=== PATIENT | male | born 1930 | race Caucasian/White ===

== ENCOUNTER → 2016-09-12 | Outpatient (CLI) | payer MEDICARE, BC ==
[2016-09-12 08:37] LABS: CHLORIDE,CL 107 mmol/L (98-110); SODIUM,NA 141 mmol/L (136-146)
== END ==
LOC: MW.CHFP 07:31
PROVIDERS: ATTEND Student in an Organized Health Care Education/Training Program
DX: E11.9 Type 2 diabetes mellitus without complications (principal); I10 Essential (primary) hypertension; E11.69 Type 2 diabetes mellitus with other specified complication; E78.5 Hyperlipidemia, unspecified; N40.0 Benign prostatic hyperplasia without lower urinary tract symptoms
CPT/HCPCS: 36415; 80053; 80061; 82044; 83036; 99214

== ENCOUNTER → 2016-10-03 | Outpatient (CLI) | payer MEDICARE, BC | LOC: MW.CHPOD 08:00 | PROVIDERS: ATTEND Podiatrist Foot & Ankle Surgery | DX: E11.9 Type 2 diabetes mellitus without complications (principal); R26.9 Unspecified abnormalities of gait and mobility; M20.41 Other hammer toe(s) (acquired), right foot; M20.42 Other hammer toe(s) (acquired), left foot; B35.1 Tinea unguium; I73.9 Peripheral vascular disease, unspecified; L60.3 Nail dystrophy | CPT/HCPCS: 11721; 99204 ==

== ENCOUNTER 2017-06-14 03:17 | Observation (INO) | payer MEDICARE, BC ==
--- NOTE | 2017-06-14 03:23 | EDM.PDOC ---
ED HPI GENERAL MEDICAL PROBLEM - General Stated Complaint: AMBULANCE Time Seen by Provider: 06/14/17 03:20 - History of Present Illness INITIAL COMMENTS - FREE TEXT/NARRATIVE: HISTORY AND PHYSICAL: History of present illness: Patient's an 87-year-old white male who was in the [facility] noted by security and when confronted states he is here for his AVM appointment paramedics were called patient was noted to be confused story remains unclear on arrival here he states his son was supposed medial check his blood sugar which he does daily and and patient check blood pressure which was elevated contacted his son who said he would meet him at the hospital patient does not have his cell phone at this time is unable to give us any contact information for her son he denies chest pain shortness of breath or any other constitutional symptoms. He is oriented to person place. Review of systems: As per history of present illness and below otherwise all systems reviewed and negative. Past medical history: As per history of present illness and as reviewed below otherwise noncontributory. Surgical history: As per history of present illness and as reviewed below otherwise noncontributory. Social history: No reported history of drug or alcohol abuse. Family history: As per history of present illness and as reviewed below otherwise noncontributory. Physical exam: HEENT: Atraumatic, normocephalic, pupils reactive, negative for conjunctival pallor or scleral icterus, mucous membranes moist, throat clear, neck supple, nontender, trachea midline. Lungs: Clear to auscultation, breath sounds equal bilaterally, chest nontender. Heart: S1S2, regular, negative for clicks, rubs, or JVD. Abdomen: Soft, nondistended, nontender. Negative for masses or hepatosplenomegaly. Negative for costovertebral tenderness. Pelvis: Stable nontender. Genitourinary: Moderate/large size right inguinal hernia noted tender to palpation unreducible baseline per patient. Rectal: Deferred. Extremities: Atraumatic, negative for cords or calf pain. Neurovascular unremarkable. Neuro: Awake, alert, oriented person and place she somewhat confused to time and has generally slow mentation Diagnostics: CBC CMP troponin PT/INR chest x-ray EKG UA ammonia level CT brain Therapeutics: IV O2 monitor Impression: #1 Altered mental status #2 right inguinal hernia #3 history of hypertension #4 history of diabetes Impression: [] Definitive disposition and diagnosis as appropriate pending reevaluation and review of above. - Related Data Allergies Allergy/AdvReac Type Severity Reaction Status Date / Time No Known Allergies Allergy Verified 06/14/17 03:26 Home Meds: Home Meds Aspirin [Azalea Chewable Aspirin] 81 mg PO DAILY 07/09/14 [History] Lisinopril [Zestril] 20 mg PO DAILY 07/09/14 [History] metFORMIN HCl [Metformin HCl] 500 mg PO TIDM 07/12/14 [History] Insulin Glarg,Human.Rec.Analog [Lantus Solostar] 30 units SUBCUT BEDTIME #1 pen 07/14/14 [Rx] Finasteride [Finasteride] 1 tab PO DAILY 07/14/15 [History] Tamsulosin HCl [Tamsulosin HCl] 1 tab PO DAILY 07/14/15 [History] Past Medical History Cardiovascular History: Reports: High Cholesterol, Hypertension Endocrine/Metabolic History: Reports: Diabetes, Type II Social & Family History - Tobacco Use Smoking Status *Q: Never Smoker Second Hand Smoke Exposure: No - Alcohol Use Days Per Week of Alcohol Use: 0 - Recreational Drug Use Recreational Drug Use: No ED ROS GENERAL - Review of Systems Review Of Systems: ROS reveals no pertinent complaints other than HPI. ED EXAM, GENERAL - Physical Exam Exam: See Below (See dictation) Course - Vital Signs Last Recorded V/S: Last Vital Signs Temp 35.9 C 06/14/17 03:22 Pulse 67 06/14/17 03:22 Resp 12 06/14/17 03:22 BP 159/74 H 06/14/17 03:22 Pulse Ox 95 06/14/17 03:22 - Orders/Labs/Meds Orders: Active Orders 24 hr Category Date Time Status Cardiac Monitoring [RC] . DIRECTED Care 06/14/17 03:18 Inactive Cardiac Monitoring [RC] . DIRECTED Care 06/14/17 03:20 Active EKG Documentation Completion [RC] STAT Care 06/14/17 03:18 Active Abdomen Pelvis wo Cont [CT] Stat Exams 06/14/17 06:07 Ordered Chest 1V Frontal [CR] Stat Exams 06/14/17 03:18 Taken Head wo Cont [CT] Stat Exams 06/14/17 03:19 Taken Sodium Chloride 0.9% [Normal Saline] 1,000 ml Med 06/14/17 06:15 Ordered IV STAT Ziprasidone Mesylate [Geodon] 20 mg Med 06/14/17 06:08 Ordered Water For Injection, Sterile [Sterile Water for Injection] 1.2 ml IM ONETIME Medication Orders Sodium Chloride (Normal Saline) 1,000 mls @ 125 mls/hr IV STAT CLARICE Ziprasidone 20 mg/ Sterile (Water) 1.2 mls @ 1 mls/sec IM ONETIME ONE Stop: 06/14/17 06:09 Labs: Laboratory Tests 06/14/17 06/14/17 06/14/17 Range/Units 03:30 04:15 04:15 WBC 8.17 (4.0-11.0) K/uL RBC 5.00 (4.50-5.90) M/uL Hgb 15.4 (13.0-17.0) g/dL Hct 44.5 (38.0-50.0) % MCV 89.0 (80.0-98.0) fL MCH 30.8 (27.0-32.0) pg MCHC 34.6 (31.0-37.0) g/dL RDW Std Deviation 42.2 (28.0-62.0) fl RDW Coeff of Huong 13 (11.0-15.0) % Plt Count 192 (150-400) K/uL MPV 10.10 (7.40-12.00) fL Neut % (Auto) 61.8 (48.0-80.0) % Lymph % (Auto) 25.2 (16.0-40.0) % Simpson % (Auto) 9.3 (0.0-15.0) % Eos % (Auto) 3.5 (0.0-7.0) % Baso % (Auto) 0.2 (0.0-1.5) % Neut # (Auto) 5.0 (1.4-5.7) K/uL Lymph # (Auto) 2.1 (0.6-2.4) K/uL Simpson # (Auto) 0.8 (0.0-0.8) K/uL Eos # (Auto) 0.3 (0.0-0.7) K/uL Baso # (Auto) 0.0 (0.0-0.1) K/uL Nucleated RBC % 0.0 /100WBC Nucleated RBCs # 0 K/uL INR 1.01 (0.86-1.11) Sodium 137 (136-146) mmol/L Potassium 4.3 (3.5-5.1) mmol/L Chloride 105 (98-110) mmol/L Carbon Dioxide 24 (21-31) mmol/L BUN 12 (6.0-23.0) mg/dL Creatinine 1.0 (0.6-1.5) mg/dL Est Cr Clr Drug Dosing TNP Estimated GFR (MDRD) > 60.0 ml/min Glucose 152 H (60-110) mg/dL Calcium 8.9 (8.8-10.8) mg/dL Ammonia (14-68) UG/DL Troponin I < 0.10 (0.0-0.29) NG/ML Urine Color Urine Appearance Urine pH (5.0-8.0) Ur Specific [place] (1.001-1.035) Urine Protein (NEGATIVE) mg/dL Urine Glucose (UA) (NEGATIVE) mg/dL Urine Ketones (NEGATIVE) mg/dL Urine Occult Blood (NEGATIVE) Urine Nitrite (NEGATIVE) Urine Bilirubin (NEGATIVE) Urine Urobilinogen (<2.0) EU/dL Ur Leukocyte Esterase (NEGATIVE) Urine RBC (0-2/HPF) Urine WBC (0-5/HPF) Ur Epithelial Cells (NONE-FEW) Urine Bacteria (NEGATIVE) Urinalysis Comment 06/14/17 06/14/17 Range/Units 04:15 04:50 WBC (4.0-11.0) K/uL RBC (4.50-5.90) M/uL Hgb (13.0-17.0) g/dL Hct (38.0-50.0) % MCV (80.0-98.0) fL MCH (27.0-32.0) pg MCHC (31.0-37.0) g/dL RDW Std Deviation (28.0-62.0) fl RDW Coeff of Huong (11.0-15.0) % Plt Count (150-400) K/uL MPV (7.40-12.00) fL Neut % (Auto) (48.0-80.0) % Lymph % (Auto) (16.0-40.0) % Simpson % (Auto) (0.0-15.0) % Eos % (Auto) (0.0-7.0) % Baso % (Auto) (0.0-1.5) % Neut # (Auto) (1.4-5.7) K/uL Lymph # (Auto) (0.6-2.4) K/uL Simpson # (Auto) (0.0-0.8) K/uL Eos # (Auto) (0.0-0.7) K/uL Baso # (Auto) (0.0-0.1) K/uL Nucleated RBC % /100WBC Nucleated RBCs # K/uL INR (0.86-1.11) Sodium (136-146) mmol/L Potassium (3.5-5.1) mmol/L Chloride (98-110) mmol/L Carbon Dioxide (21-31) mmol/L BUN (6.0-23.0) mg/dL Creatinine (0.6-1.5) mg/dL Est Cr Clr Drug Dosing Estimated GFR (MDRD) ml/min Glucose (60-110) mg/dL Calcium (8.8-10.8) mg/dL Ammonia 30 (14-68) UG/DL Troponin I (0.0-0.29) NG/ML Urine Color YELLOW Urine Appearance CLEAR Urine pH 6.5 (5.0-8.0) Ur Specific [place] 1.015 (1.001-1.035) Urine Protein NEGATIVE (NEGATIVE) mg/dL Urine Glucose (UA) >=1000 (NEGATIVE) mg/dL Urine Ketones NEGATIVE (NEGATIVE) mg/dL Urine Occult Blood TRACE-LYSED (NEGATIVE) Urine Nitrite NEGATIVE (NEGATIVE) Urine Bilirubin NEGATIVE (NEGATIVE) Urine Urobilinogen 0.2 (<2.0) EU/dL Ur Leukocyte Esterase NEGATIVE (NEGATIVE) Urine RBC 0-2 (0-2/HPF) Urine WBC 0-1 (0-5/HPF) Ur Epithelial Cells RARE (NONE-FEW) Urine Bacteria RARE (NEGATIVE) Urinalysis Comment Meds: Medications Generic Name Dose Route Start Last Admin Trade Name Freq PRN Reason Stop Dose Admin Sodium Chloride 1,000 mls @ 125 mls/hr 06/14/17 06:15 Normal Saline IV STAT CLARICE Ziprasidone 20 mg/ Sterile 1.2 mls @ 1 mls/sec 06/14/17 06:08 Water IM 06/14/17 06:09 ONETIME ONE Departure - Departure Time of Disposition: 06:11 Disposition: Refer to Observation Condition: Good Clinical Impression: Altered mental status, Inguinal hernia, History of diabetes mellitus, History of hypertension - Discharge Information - My Orders Last 24 Hours: My Active Orders 06/14/17 03:18 Cardiac Monitoring [RC] . DIRECTED EKG Documentation Completion [RC] STAT Chest 1V Frontal [CR] Stat 06/14/17 03:19 Head wo Cont [CT] Stat 06/14/17 03:20 Cardiac Monitoring [RC] . DIRECTED 06/14/17 06:07 Abdomen Pelvis wo Cont [CT] Stat 06/14/17 06:08 Ziprasidone Mesylate [Geodon] 20 mg Water For Injection, Sterile [Sterile Water for Injection] 1.2 ml IM ONETIME 06/14/17 06:15 Sodium Chloride 0.9% [Normal Saline] 1,000 ml IV STAT - Assessment/Plan Last 24 Hours: My Active Orders 06/14/17 03:18 Cardiac Monitoring [RC] . DIRECTED EKG Documentation Completion [RC] STAT Chest 1V Frontal [CR] Stat 06/14/17 03:19 Head wo Cont [CT] Stat 06/14/17 03:20 Cardiac Monitoring [RC] . DIRECTED 06/14/17 06:07 Abdomen Pelvis wo Cont [CT] Stat 06/14/17 06:08 Ziprasidone Mesylate [Geodon] 20 mg Water For Injection, Sterile [Sterile Water for Injection] 1.2 ml IM ONETIME 06/14/17 06:15 Sodium Chloride 0.9% [Normal Saline] 1,000 ml IV STAT
[2017-06-14 04:38] LABS: CHLORIDE,CL 105 mmol/L (98-110); SODIUM,NA 137 mmol/L (136-146)
[2017-06-14] MEDS ORDERED: Ziprasidone Mesylate 20 MG in Water For Injection, Sterile 1.2 ML IM ONE (06:08)
[2017-06-14] MEDS ORDERED: Ziprasidone Mesylate 20 MG Vial ONE ×2 (06:12→06:26)
[2017-06-14] MEDS ORDERED: Sodium Chloride 0.9% 1,000 ML IV SCH (06:15)
[2017-06-14] MEDS ORDERED: Pneumococcal Polyvalent-23 Vaccine 0.5 ML SDV IM ONE (08:44)
--- NOTE | 2017-06-14 09:12 | PCM.HP ---
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 He reported he had an appointment this morning. He was brought into the ED after paramedics talked to him and he seemed very confused. In the ED he was unable to provide any history. And no family around. This morning son, Zachary arrived after he went to patient's house this morning to pick him up for his appointment with Dr. Murray this morning. His father wasn' t there. He reports family has noticed worsening confusion over the last few months especially in the evening hours. He lives at his own house, with a disabled son who is deaf and lives in the basement. Family checks on him frequently but is not with him 24 hours a day. Zachary reports his father will never agree to go to [employer], his lives there now. Sanchez denies any pain, chest pain or SOB. He is alert, oriented to person and place, but disoriented to time. He thinks he is here for surgery and is hoping to delay it until the snow is gone. In [facility] ED labwork all within normal limits. INR 1.01, glucose 152, Troponin negative. UA negative alone with drug screen. CXR negative and Head CT negative as well. CT abd/pelvis ordered, but was not completed in ED. He was given Geodon for confusion in ED. It was noted on nursing assessment patient had painful and enlarged R testicle. He was admitted observation for alerted mental status. PCP, Dr Murray. inguinal area Pain Score (Numeric/FACES): 5 - Related Data Allergies/Adverse Reactions: Allergies Allergy/AdvReac Type Severity Reaction Status Date / Time No Known Allergies Allergy Verified 06/14/17 03:26 Home Medications: Home Meds Aspirin [Azalea Chewable Aspirin] 81 mg PO DAILY 07/09/14 [History] Lisinopril [Zestril] 20 mg PO DAILY 07/09/14 [History] metFORMIN HCl [Metformin HCl] 500 mg PO TIDM 01/19/15 [History] Finasteride [Finasteride] 5 mg PO DAILY 07/14/15 [History] Tamsulosin HCl [Tamsulosin HCl] 0.4 mg PO DAILY 07/14/15 [History] Insulin Glarg,Human.Rec.Analog [Lantus Solostar] 26 units SUBCUT BEDTIME [History] Multivitamin [Daily Carlene] 1 tab PO DAILY 06/14/17 [History] Simvastatin [Zocor] 20 mg PO BEDTIME 06/14/17 [History] Past Medical History Cardiovascular History: Reports: High Cholesterol, Hypertension. Denies: Afib, Blood Clots/VTE/DVT Respiratory History: Reports: None. Denies: COPD, PE Other Gastrointestinal History: R inguinal hernia Genitourinary History: Reports: BPH, Chronic Renal Insuffiency Neurological History: Denies: CVA, TIA Other Neuro History: Dementia Psychiatric History: Reports: Dementia Endocrine/Metabolic History: Reports: Diabetes, Type II - Infectious Disease History Infectious Disease History: Reports: Chicken Pox, Mumps Social & Family History - Tobacco Use Smoking Status *Q: Never Smoker Second Hand Smoke Exposure: No - Caffeine Use Caffeine Use: Reports: None - Alcohol Use Days Per Week of Alcohol Use: 0 - Recreational Drug Use Recreational Drug Use: No - Living Situation & Occupation Living situation: Reports: Alone Occupation: Retired H&P Review of Systems - Review of Systems: Review Of Systems: See Below General: Reports: No Symptoms. Denies: Fever, Chills, Malaise, Weakness HEENT: Reports: No Symptoms. Denies: Headaches, Sinus Congestion, Sore Throat, Vertigo Pulmonary: Reports: No Symptoms. Denies: Shortness of Breath Cardiovascular: Reports: No Symptoms. Denies: Chest Pain Gastrointestinal: Reports: No Symptoms, Flatus. Denies: Abdominal Pain, Black Stool, Bloody Stool, Constipation, Diarrhea, Nausea, Vomiting Genitourinary: Reports: Incontinence (upon arrival to ED, he had saturated bried on. ), Other (swollen R testicle.). Denies: Dysuria, Frequency, Burning Musculoskeletal: Reports: No Symptoms Skin: Reports: No Symptoms Psychiatric: Reports: Confusion (son reports this is near his baseline.). Denies: Agitation Neurological: Reports: No Symptoms, Confusion Hematologic/Lymphatic: Reports: No Symptoms Immunologic: Reports: No Symptoms Exam - Exam Exam: See Below - Vital Signs Vital Signs: Last Vital Signs Temp 97.1 F 06/14/17 08:00 Pulse 71 06/14/17 08:00 Resp 20 06/14/17 08:00 BP 130/76 06/14/17 08:00 Pulse Ox 96 06/14/17 08:00 Weight: 72 kg - Exam General: Alert, Cooperative. No: Oriented HEENT: Conjunctiva Clear, Mucosa Moist & Paden, Pupils Reactive Neck: Supple, Trachea Midline. No: Lymphadenopathy Lungs: Clear to Auscultation, Normal Respiratory Effort Cardiovascular: Regular Rate, Regular Rhythm, Normal S1, Normal S2 GI/Abdominal Exam: Normal Bowel Sounds, Soft, Hernia (large R inguinal hernia noted) (Male) Exam: Hernia (large R inguinal hernia), Testicular Tenderness (R) Back Exam: Normal Inspection, Full Range of Motion, NT Extremities: Normal Inspection, Normal Range of Motion, Non-Tender, No Pedal Edema, Normal Capillary Refill Neurological: Cranial Nerves Intact Neuro Extensive - Mental Status: Alert, Disorientation to Time, Memory Loss- Remote Events. No: Oriented x3, Memory Intact Psychiatric: Alert, Normal Affect, Normal Mood - Patient Data Lab Results Last 24 hrs: Laboratory Results - last 24 hr 06/14/17 Range/Units 07:52 Urine Opiates Screen NEGATIVE (NEGATIVE) Ur Oxycodone Screen NEGATIVE (NEGATIVE) Urine Methadone Screen NEGATIVE (NEGATIVE) Ur Barbiturates Screen NEGATIVE (NEGATIVE) Ur Phencyclidine Scrn NEGATIVE (NEGATIVE) Ur Amphetamine Screen NEGATIVE (NEGATIVE) U Methamphetamines Scrn NEGATIVE (NEGATIVE) U Benzodiazepines Scrn NEGATIVE (NEGATIVE) U Cocaine Metab Screen NEGATIVE (NEGATIVE) U Marijuana (THC) Screen NEGATIVE (NEGATIVE) Result Diagrams: 06/14/17 03:30 06/14/17 04:15 *Q Meaningful Use (ADM) - VTE *Q VTE Criteria *Q: - Stroke *Q Stroke Criteria *Q: - AMI *Q AMI Criteria *Q: - Problem List (1) Recurrent inguinal hernia SNOMED Code(s): 2346436311380 ICD Code: K40.91 - UNILATERAL INGUINAL HERNIA, W/O OBST OR GANGRENE, RECURRENT Status: Acute Current Visit: Yes (2) Altered mental status SNOMED Code(s): 050352880 ICD Code: R41.82 - ALTERED MENTAL STATUS, UNSPECIFIED Status: Acute Current Visit: Yes (3) History of diabetes mellitus SNOMED Code(s): 372801944 ICD Code: Z86.39 - PERSONAL HISTORY OF ENDO, NUTRITIONAL AND METABOLIC DISEASE Status: Acute Current Visit: Yes (4) History of hypertension SNOMED Code(s): 930152136 ICD Code: Z86.79 - PERSONAL HISTORY OF OTHER DISEASES OF THE CIRCULATORY SYSTEM Status: Acute Current Visit: Yes Problem List Initiated/Reviewed/Updated: Yes Orders Last 24hrs: Active Orders 24 hr Category Date Time Status Admission Status [Patient Status] [ADT] Routine ADT 06/14/17 06:46 Active Medication Orders Sodium Chloride (Normal Saline) 1,000 mls @ 125 mls/hr IV STAT CLARICE Last Admin: 06/14/17 06:20 Dose: 125 mls/hr Assessment/Plan Comment:: This 87 year old male admitted for AMS 1. AMS: When son arrived, he verified this is near his baseline, but they have noticed worsening in confusion over the last few months. Encouraged to find more care for his father at home, or offered [facility] admission. He was encouraged to take keys away, as his father is not fit to be driving. He report his dad will not go to [facility]. We offered resources such as home health and [facility]. Spoke with PCP, Dr Tamiko Murray. Will stop Simvastatin due to worsening confusion, possibly contributing? Dr. Murray was ok with this. 2. R inguinal hernia: Abd/pelvis obtained this afternoon reveals "large right inguinal hernia containing the cecum and terminal ileum. There are congestive changes within the herniated contents suggesting some degree of incarceration." Will consult surgery for recommendations. Patient reports, "its been like this for years" Noted to be very tender to palpation. 3. HTN: Stable, will continue Lisinopril. 4. DM: Stable, will continue Lantus at bedtime. Novolog SSI TIDAC. VTE prophylaxis: SCDs for now until surgery consult. Dispo: 1-2 days pending consult.
[2017-06-14] MEDS ORDERED: Acetaminophen 325 MG Tab PO PRN (09:16)
[2017-06-14 12:07] VITALS: BP 160/87
[2017-06-14] MEDS ORDERED: Lisinopril 10 MG Tab PO SCH (12:15)
[2017-06-14] MEDS ORDERED: Tamsulosin 0.4 MG Cap.ER PO SCH (12:15)
[2017-06-14] MEDS ORDERED: Insulin Aspart 100 Units/ML 3 ML Pen SUBCUT SCH (12:15)
[2017-06-14] MEDS ORDERED: LORazepam 2 MG/ML SDV IVPUSH PRN (13:00)
--- NOTE | 2017-06-14 13:54 | PCM.DCSUM1 ---
Discharge Summary - Hospital Course Brief History: This 87 year old male with HTN and IDDM presented to the ED after security found him in the parking lot early this morning, around 2 am. He reported he had an appointment this morning. He was brought into the ED after paramedics talked to him and he seemed very confused. In the ED he was unable to provide any history. And no family around. This morning son, Zachary arrived after he went to patient's house this morning to pick him up for his appointment with Dr. Murray this morning. His father wasn't there. He reports family has noticed worsening confusion over the last few months especially in the evening hours. He lives at his own house, with a disabled son who is deaf and lives in the basement. Family checks on him frequently but is not with him 24 hours a day. Zachary reports his father will never agree to go to [place], his lives there now. Sanchez denies any pain, chest pain or SOB. He is alert, oriented to person and place, but disoriented to time. He thinks he is here for surgery and is hoping to delay it until the snow is gone. In the ED labwork all within normal limits. INR 1.01, glucose 152, Troponin negative. UA negative alone with drug screen. CXR negative and Head CT negative as well. CT abd/ pelvis ordered, but was not completed in ED. He was given Geodon for confusion in ED. It was noted on nursing assessment patient had painful and enlarged R testicle. He was admitted observation for alerted mental status. - Discharge Data Discharge Date: 06/14/17 Discharge Disposition: DC/Tfer to Acute Hospital 02 Condition: Fair - Discharge Diagnosis/Problem(s) (1) Recurrent inguinal hernia SNOMED Code(s): 7209345470425 ICD Code: K40.91 - UNILATERAL INGUINAL HERNIA, W/O OBST OR GANGRENE, RECURRENT Status: Acute Current Visit: Yes (2) Altered mental status SNOMED Code(s): 015909320 ICD Code: R41.82 - ALTERED MENTAL STATUS, UNSPECIFIED Status: Acute Current Visit: Yes (3) History of diabetes mellitus SNOMED Code(s): 239441503 ICD Code: Z86.39 - PERSONAL HISTORY OF ENDO, NUTRITIONAL AND METABOLIC DISEASE Status: Acute Current Visit: Yes (4) History of hypertension SNOMED Code(s): 093825638 ICD Code: Z86.79 - PERSONAL HISTORY OF OTHER DISEASES OF THE CIRCULATORY SYSTEM Status: Acute Current Visit: Yes - Patient Summary/Data Consults: Consultations 06/14/17 13:15 Consult to Physician [CONS] Routine - Patient Instructions Diet: NPO - Discharge Plan Home Medications: Home Meds Aspirin [Azalea Chewable Aspirin] 81 mg PO DAILY 07/09/14 [History] Lisinopril [Zestril] 20 mg PO DAILY 07/09/14 [History] metFORMIN HCl [Metformin HCl] 500 mg PO TIDM 07/12/14 [History] Finasteride [Finasteride] 5 mg PO DAILY 07/14/15 [History] Tamsulosin HCl [Tamsulosin HCl] 0.4 mg PO DAILY 07/14/15 [History] Insulin Glarg,Human.Rec.Analog [Lantus Solostar] 26 units SUBCUT BEDTIME [History] Multivitamin [Daily Carlene] 1 tab PO DAILY 06/14/17 [History] Simvastatin [Zocor] 20 mg PO BEDTIME 06/14/17 [History] Referrals: Og Murray MD [Physician] - Refugio Garcia MD [Physician] - 07/01/17 10:45 am - Discharge Summary/Plan Comment DC Time >30 min.: No Discharge Summary/Plan Comment: Discharge Plan; Diagnoses: R incarcerated inguinal hernia Dementia HTN IDDM BPH CT of abd/pelvis obtained late this morning, revealed "large right inguinal hernia containing the cecum and terminal ileum. There are congestive changes within the herniated contents suggesting some degree of incarceration" Our surgeon, Dr. Monk consulted and visited with the patient. She has recommended transfer due to patients age and comorbities and expecting possibilities of post -operative complications and having surgery at a higher level of care would be more appropriate. Please see consultation note. She spoke with Dr. Reis, online advertising analyst surgeon at [facility] who has accepted patient for transfer. I also spoke with Dr. Abad, ED physician who will be expecting patient via transfer. Dr. Monk requested transfer by flight due to emergent status. Patient and family, son Zachary and daughter in law Maritza, in the room during discussion of transfer and agree with this plan of care. When I first discussed this with patient, he was agreeable for transfer and said "Yep just get me to [place]." Then upon assessment by surgeon, he was agitated and eventually was given Ativan 0.25 mg IV, which did help to calm the patient. He will be transferred acutely to [facility] in [facility] ED room with Dr Abad expecting and Dr Reis also expecting his arrival. - General Info Date of Service: 06/14/17 Functional Status: Reports: Pain Controlled. Denies: Tolerating Diet (last at 0800 this morning. ) - Review of Systems General: Reports: No Symptoms. Denies: Fever Pulmonary: Reports: No Symptoms. Denies: Shortness of Breath, Cough, Sputum Cardiovascular: Reports: No Symptoms. Denies: Chest Pain, Palpitations, Edema Gastrointestinal: Denies: Abdominal Pain, Nausea, Vomiting Genitourinary: Reports: No Symptoms. Denies: Dysuria, Frequency, Burning Neurological: Reports: Confusion. Denies: Headache - Patient Data Vitals - Most Recent: Last Vital Signs Temp 96.0 F 06/14/17 12:06 Pulse 56 L 06/14/17 12:06 Resp 20 06/14/17 08:00 BP 160/87 H 06/14/17 12:06 Pulse Ox 96 06/14/17 08:00 Weight - Most Recent: 72 kg Lab Results - Last 24 hrs: Laboratory Results - last 24 hr 06/14/17 06/14/17 Range/Units 07:52 13:08 Lactate 1.0 (0.20-2.00) mmol/L Urine Opiates Screen NEGATIVE (NEGATIVE) Ur Oxycodone Screen NEGATIVE (NEGATIVE) Urine Methadone Screen NEGATIVE (NEGATIVE) Ur Barbiturates Screen NEGATIVE (NEGATIVE) Ur Phencyclidine Scrn NEGATIVE (NEGATIVE) Ur Amphetamine Screen NEGATIVE (NEGATIVE) U Methamphetamines Scrn NEGATIVE (NEGATIVE) U Benzodiazepines Scrn NEGATIVE (NEGATIVE) U Cocaine Metab Screen NEGATIVE (NEGATIVE) U Marijuana (THC) Screen NEGATIVE (NEGATIVE) Med Orders - Current: Current Medications Acetaminophen (Tylenol) 650 mg PO Q4H PRN PRN Reason: Pain (Mild 1-3) Finasteride (Proscar) 5 mg PO DAILY [facility] Insulin Aspart (Novolog) 0 unit SUBCUT TIDAC [facility] PRN Reason: Protocol Last Admin: 06/14/17 13:15 Dose: Not Given Insulin Glargine (Lantus Solostar) 26 units SUBCUT BEDTIME [facility] Lisinopril (Prinivil) 20 mg PO DAILY [facility] Lorazepam (Ativan) 0.25 mg IVPUSH Q6H PRN PRN Reason: Agitation Last Admin: 06/14/17 13:36 Dose: 0.25 mg Multivitamins/Minerals/Vitamin C (Tab-A-Carlene) 1 tab PO DAILY [facility] Tamsulosin HCl (Flomax) 0.4 mg PO DAILY [facility] Discontinued Medications Sodium Chloride (Normal Saline) 1,000 mls @ 125 mls/hr IV STAT [facility] Last Admin: 06/14/17 06:20 Dose: 125 mls/hr Ziprasidone 20 mg/ Sterile (Water) 1.2 mls @ 1 mls/sec IM ONETIME ONE Stop: 06/14/17 06:09 Last Admin: 06/14/17 06:29 Dose: 1 mls/sec Pneumococcal Polyvalent Vaccine (Pneumovax 23) 0.5 ml IM .ONCE ONE Stop: 06/14/17 08:45 Ziprasidone (Geodon) Confirm Administered Dose 20 mg .ROUTE .STK-MED ONE Stop: 06/14/17 06:13 Last Admin: 06/14/17 06:47 Dose: Not Given Ziprasidone (Geodon) Confirm Administered Dose 20 mg .ROUTE .STK-MED ONE Stop: 06/14/17 06:27 Last Admin: 06/14/17 06:47 Dose: Not Given - Exam General: Reports: Alert, Cooperative, No Acute Distress. Denies: Oriented Neck: Reports: Supple Lungs: Reports: Clear to Auscultation, Normal Respiratory Effort Cardiovascular: Reports: Regular Rate, Regular Rhythm (Male) Exam: Scrotum Tenderness (R), Testicular Tenderness (R), Other (large r inguinal hernia, scrotum is enlarged, erythematous and very painful to palpation.) Back Exam: Reports: Normal Inspection, Full Range of Motion Extremities: Normal Inspection, Normal Range of Motion, Non-Tender, No Pedal Edema, Normal Capillary Refill Wound/Incisions: Reports: Healing Well Neurological: Reports: No New Focal Deficit Psy/Mental Status: Reports: Alert, Normal Affect, Normal Mood, Agitated ( intermittently, but calm at this time. ) *Q Meaningful Use (DIS) - VTE *Q VTE Criteria *Q: - Stroke *Q Stroke Criteria *Q: - AMI *Q AMI Criteria *Q:
--- NOTE | 2017-06-14 18:02 | CR ---
EXAM DATE: 06/14/17 PATIENT'S AGE: 87 Patient: BRIANNA BENDER Facility: [place], [place] Site . Site : 1930 Study: XRay Chest [id number]/22/2017 4:17:27 AM Ordering Physician: Doctor Roland Final Report: Indication: Chest pain Technique: Chest 1 view Comparison: April 26, 2017 Findings/Impression: The lung volumes are low which accentuate the cardiac size. No focal infiltrate , effusion, or pneumothorax. No acute osseous abnormality. Dictated by Lor Donis MD @ Jun 14 2017 5:28AM (Electronic Signature) Report Signed by Proxy. LAINEY
--- NOTE | 2017-06-14 18:03 | CT ---
EXAM DATE: 06/14/17 PATIENT'S AGE: 87 Patient: BRIANNA BENDER Facility: [facility], [place], [place] : 1930 Study: CT Head [id number] 4:20:34 AM Ordering Physician: ALEXIS Final Report: INDICATION: Confusion TECHNIQUE: Head CT without contrast. COMPARISON: July 10, 2014 FINDINGS: CSF spaces: Within normal limits for age. Brain parenchyma: There are nonspecific low attenuation white matter changes consistent with chronic microvascular disease. No sign of mass, hemorrhage, or midline shift. Skull base and calvarium: The visualized paranasal sinuses and mastoid air cells demonstrate no acute or significant findings. The visualized orbits are grossly unremarkable. No skull fractures. There is intracranial atherosclerosis. IMPRESSION: 1. No acute findings. 2. Nonspecific white matter disease, typical of chronic microvascular disease. Please note that all CT scans at this facility use dose modulation, iterative reconstruction, and/or weight-based dosing when appropriate to reduce radiation dose to as low as reasonably achievable. Dictated by Lor Donis MD @ Jun 14 2017 4:47AM (Electronic Signature) Report Signed by Proxy. [facility]
--- NOTE | 2017-06-14 18:12 | CT ---
EXAM DATE: 06/14/17 PATIENT'S AGE: 87 Patient: BRIANNA BENDER Facility: [place], [place] : 1930 Study: CT Abdomen/Pelvis [id number]/22/2017 10:01:52 AM Ordering Physician: JUSTUS ESPINOZA MD Final Report: INDICATION: Pain. TECHNIQUE: CT abdomen and pelvis without contrast. COMPARISON: None. FINDINGS: LOWER CHEST: Coronary artery atherosclerosis is present. Small hiatal hernia. LIVER: Normal in size and attenuation. No masses. GALLBLADDER AND BILE DUCTS: No stones or inflammation. No biliary dilatation. PANCREAS: Unremarkable. No mass or inflammation. SPLEEN: Normal in size. No masses. ADRENAL GLANDS: Normal in size. No nodules. KIDNEYS: Single small nonobstructing stone is in the left kidney. There is a prominent left extrarenal pelvis and caliectasis GI TRACT: There is distal diverticulosis. No mass or obstruction. VASCULATURE: Unremarkable. LYMPH NODES: No lymphadenopathy. OMENTUM/PERITONEUM/ABDOMINAL WALL: There is a large right inguinal hernia containing the cecum and terminal ileum. There are congestive changes within the herniated contents. PELVIS: Unremarkable. No pelvic masses. BONES: Unremarkable for age. IMPRESSION: 1. Large right inguinal hernia containing the cecum and terminal ileum. There are congestive changes within the herniated contents suggesting some degree of incarceration. 2. Left renal pelvicaliectasis. UPJ obstruction of uncertain etiology and chronicity is possible. 3. No other significant findings. Dictated by Babatunde Gilmore MD @ 06/14/2017 11:05:42 AM Please note that all CT scans at this facility use dose modulation, iterative reconstruction, and/or weight-based dosing when appropriate to reduce radiation dose to as low as reasonably achievable. Dictated by: Babatunde Gilmore MD @ 06/14/2017 11:05:52 (Electronic Signature) Report Signed by Proxy. [facility]
--- NOTE | 2017-06-14 20:45 | PCM.CONS ---
H&P History of Present Illness - General Date of Service: 06/15/17 Admit Problem/Dx: Admission Diagnosis/Problem Admission Diagnosis/Problem Altered mental status Source of Information: Family History Limitations: Reports: Altered Mental Status, Combative/Threatening, Uncooperative - History of Present Illness Initial Comments - Free Text/Narative: 87-year-old white male who was brought in with altered mental status. He was found in the [facility] noted by security and when confronted states he is here for his AM appointment. He was confused and brought to the ED. A head CT was performed that was normal. He was found to have a large right groin hernia that was red and painful to touch. The patient stated that it has been present for "years" and that it is non-reducible baseline. His past medical history is significant for type 2 diabetes, HTN, BPH, and moderate LVH. His family states that he has had increasing confusion with "sun-downing" at night. He was combative in the ED requiring Geodon. When he got to the floor, he was initially calm and compliant. Then he began ripping off his clothes and EKG leads and became combative. He was given ativan to keep him calm. A CT was performed that showed the following; Large right inguinal hernia containing the cecum and terminal ileum. There are congestive changes within the herniated contents suggesting some degree of incarceration. His WBC, lactate, and BMP were normal. inguinal area Pain Score (Numeric/FACES): 5 - Related Data Allergies/Adverse Reactions: Allergies Allergy/AdvReac Type Severity Reaction Status Date / Time No Known Allergies Allergy Verified 06/14/17 03:26 Home Medications: Home Meds Aspirin [Azalea Chewable Aspirin] 81 mg PO DAILY 07/09/14 [History] Lisinopril [Zestril] 20 mg PO DAILY 07/09/14 [History] metFORMIN HCl [Metformin HCl] 500 mg PO TIDM 07/12/14 [History] Finasteride [Finasteride] 5 mg PO DAILY 07/14/15 [History] Tamsulosin HCl [Tamsulosin HCl] 0.4 mg PO DAILY 07/14/15 [History] Insulin Glarg,Human.Rec.Analog [Lantus Solostar] 26 units SUBCUT BEDTIME [History] Multivitamin [Daily Carlene] 1 tab PO DAILY 06/14/17 [History] Simvastatin [Zocor] 20 mg PO BEDTIME 06/14/17 [History] Past Medical History Cardiovascular History: Reports: High Cholesterol, Hypertension. Denies: Afib, Blood Clots/VTE/DVT Respiratory History: Reports: None. Denies: COPD, PE Other Gastrointestinal History: R inguinal hernia Genitourinary History: Reports: BPH, Chronic Renal Insuffiency Neurological History: Denies: CVA, TIA Other Neuro History: Dementia Psychiatric History: Reports: Dementia Endocrine/Metabolic History: Reports: Diabetes, Type II - Infectious Disease History Infectious Disease History: Reports: Chicken Pox, Mumps Social & Family History - Tobacco Use Smoking Status *Q: Never Smoker Second Hand Smoke Exposure: No - Caffeine Use Caffeine Use: Reports: None - Alcohol Use Days Per Week of Alcohol Use: 0 - Recreational Drug Use Recreational Drug Use: No - Living Situation & Occupation Living situation: Reports: Alone Occupation: Retired H&P Review of Systems - Review of Systems: Review Of Systems: ROS reveals no pertinent complaints other than HPI. Exam - Exam Exam: See Below - Vital Signs Vital Signs: Last Vital Signs Temp 35.6 C 06/14/17 12:06 Pulse 56 L 06/14/17 12:06 Resp 20 06/14/17 08:00 BP 160/87 H 06/14/17 12:06 Pulse Ox 96 06/14/17 08:00 Weight: 72 kg - Exam General: Severe Distress, Other (Combative ) HEENT: Conjunctiva Clear Lungs: Normal Respiratory Effort Cardiovascular: Regular Rhythm GI/Abdominal Exam: Guarding, Rigid, Other (Patient had a large red, swollen non- reducible hernia in the right groin. I attempted to reduce it and it was painful. Patient was combative and angry about being examined. He was voluntarily guarding his abdomen however with palpation he seemed tender. ) - Patient Data Lab Results Last 24 hrs: Laboratory Results - last 24 hr 06/14/17 06/14/17 06/14/17 Range/Units 07:52 12:15 13:08 Lactate 1.0 (0.20-2.00) mmol/L POC Glucose 139 H (60-110) mg/dL Urine Opiates Screen NEGATIVE (NEGATIVE) Ur Oxycodone Screen NEGATIVE (NEGATIVE) Urine Methadone Screen NEGATIVE (NEGATIVE) Ur Barbiturates Screen NEGATIVE (NEGATIVE) Ur Phencyclidine Scrn NEGATIVE (NEGATIVE) Ur Amphetamine Screen NEGATIVE (NEGATIVE) U Methamphetamines Scrn NEGATIVE (NEGATIVE) U Benzodiazepines Scrn NEGATIVE (NEGATIVE) U Cocaine Metab Screen NEGATIVE (NEGATIVE) U Marijuana (THC) Screen NEGATIVE (NEGATIVE) Result Diagrams: 06/14/17 03:30 06/14/17 04:15 Consult PN Assessment/Plan Procedures: Procedures APPLY FOREARM SPLINT (07/14/15) ASSAY OF CREATININE (08/22/15) ASSAY OF MAGNESIUM (07/09/14) ASSAY OF PHOSPHORUS (07/09/14) ASSAY OF UREA NITROGEN (08/22/15) ASSAY THYROID STIM HORMONE (04/26/17) BLOOD CULTURE FOR BACTERIA (07/09/14) BLOOD GASES ANY COMBINATION (07/09/14) CHEST X-RAY 1 VIEW FRONTAL (07/09/14) CHEST X-RAY 2VW FRONTAL&LATL (04/26/17) COMPLETE CBC W/AUTO DIFF WBC (04/26/17) COMPREHEN METABOLIC PANEL (04/26/17) CT ABD & PELVIS W/O CONTRAST (12/08/14) CT HEAD/BRAIN W/O DYE (07/09/14) CT THORAX W/O DYE (07/09/14) CULTURE AEROBIC IDENTIFY (11/17/14) CYSTOSCOPY (11/17/14) EMERGENCY DEPT VISIT (07/14/15) EMERGENCY DEPT VISIT (07/09/14) FLUOROSCOPE EXAMINATION (07/09/14) GLUCOSE BLOOD TEST (07/09/14) GLYCOSYLATED HEMOGLOBIN TEST (03/18/17) HYDRATION IV INFUSION INIT (07/09/14) IMMUNIZATION ADMIN EACH ADD (06/11/16) INFLUENZA ASSAY W/OPTIC (07/09/14) LIPID PANEL (03/18/17) METABOLIC PANEL TOTAL CA (07/09/14) MICROALBUMIN SEMIQUANT (03/18/17) MICROBE SUSCEPTIBLE ODESSA (11/17/14) MRI BRAIN STEM W/O DYE (05/07/17) OFFICE/OUTPATIENT VISIT EST (03/18/17) OFFICE/OUTPATIENT VISIT EST (03/09/15) OFFICE/OUTPATIENT VISIT EST (08/04/14) OFFICE/OUTPATIENT VISIT NEW (07/19/15) ORTHOTIC MGMT AND TRAINING (07/19/15) REMOVE IMPACTED EAR WAX UNI (06/11/16) ROUTINE VENIPUNCTURE (03/18/17) SYPHILIS TEST NON-TREP QUAL (04/26/17) TDAP VACCINE 7 YRS/> IM (06/11/16) THER/PROPH/DIAG INJ SC/IM (07/09/14) TTE W/DOPPLER COMPLETE (05/07/17) URINALYSIS AUTO W/SCOPE (04/26/17) URINE BACTERIA CULTURE (07/09/14) URINE CULTURE/COLONY COUNT (08/22/15) US TRANSRECTAL (08/26/14) VITAMIN B-12 (04/26/17) WITHDRAWAL OF ARTERIAL BLOOD (07/09/14) X-RAY EXAM OF HAND (07/14/15) X-RAY EXAM OF WRIST (07/14/15) (1) Incarcerated inguinal hernia SNOMED Code(s): 48612919 Code(s): K40.30 - UNIL INGUINAL HERNIA, W OBST, W/O GANGR, NOT SPCF RECUR (2) Altered mental status SNOMED Code(s): 976413189 Code(s): R41.82 - ALTERED MENTAL STATUS, UNSPECIFIED Problem List Initiated/Reviewed/Updated: Yes Plan: This patient has an incarcerated inguinal hernia that I am afraid may be strangulated. I discussed the need to have this repaired with his daughter in law who is involved in his care. This may require a traditional right inguinal hernia repair or potentially an exploratory laparotomy if the hernia sac contents are not able to be reduced into the abdomen or if the bowel is compromised and needs a resection. Given his age, altered mental status, baseline dementia, and co-morbidities (poorly controlled DM (last hgb A1c in february was 8.9), heart disease (last echo showed an EF of 60-65%, moderate LVH, mild aortic valve sclerosis, trace MV regurg)) I discussed his case with my senior marketing manager. We both agreed that the surgery could be performed here however he has an increased risk of post operative complications including heart attack, stroke, postoperative delerium, and/or wound complications. He felt that the patient would need to be transferred to a facility with more resources and an ICU in anticipation of this. I discussed his case in length with the hospitalists team as well. I anticipate that he would have to stay in the hospital for greater than three days regardless of how well the case would be. I requested the patient be transfered. He will be flown to [place] for surgical evaluation.
[2017-06-14] MEDS ORDERED: Insulin Glargine,Human Rec. Analog 100 Units/ML 3 ML Pen SUBCUT SCH (21:00)
[2017-06-15] MEDS ORDERED: Finasteride 5 MG Tab PO SCH (09:00)
[2017-06-15] MEDS ORDERED: Multivitamin Tab PO SCH (09:00)
== END 2017-06-14 14:45 ==
LOC: MW.ED 03:17 → MW.MS 06:12 → INTOOBSV 06:12
PROVIDERS: ADMIT Family Medicine; ATTEND Family Medicine
DX: R41.82 Altered mental status, unspecified (principal); K40.30 Unilateral inguinal hernia, with obstruction, without gangrene, not specified as recurrent; F03.90 Unspecified dementia, unspecified severity, without behavioral disturbance, psychotic disturbance, mood disturbance, and anxiety; N40.0 Benign prostatic hyperplasia without lower urinary tract symptoms; I51.7 Cardiomegaly; I12.9 Hypertensive chronic kidney disease with stage 1 through stage 4 chronic kidney disease, or unspecified chronic kidney disease; E11.22 Type 2 diabetes mellitus with diabetic chronic kidney disease; N18.9 Chronic kidney disease, unspecified; E78.00 Pure hypercholesterolemia, unspecified; Z79.82 Long term (current) use of aspirin; Z79.4 Long term (current) use of insulin; Z79.899 Other long term (current) drug therapy
CPT/HCPCS: 36415; 70450; 71010; 74176; 80048; 80305; 81001; 82140; 82962; 83605; 84484; 85025; 85610; 93005; 96372; 99285; J2060; J3486; J7040; 96374; G0378

== ENCOUNTER 2018-02-17 04:00 | Emergency (ER) | payer MEDICARE, MEDICAID, BC ==
--- NOTE | 2018-02-17 04:02 | EDM.PDOC ---
ED HPI GENERAL MEDICAL PROBLEM - General Stated Complaint: FALL Time Seen by Provider: 02/17/18 04:01 History Limitations: Reports: No Limitations - History of Present Illness INITIAL COMMENTS - FREE TEXT/NARRATIVE: HISTORY AND PHYSICAL: History of present illness: 87-year-old [facility] male presenting emergency department after fall with laceration to the scalp with past medical history of Alzheimer's/dementia, type 2 diabetes, hyperlipidemia. As per [facility] patient was placed in his bed evening and at some point during the night he got up and was found on the floor soon afterwards. At that time the patient was conscious. He does have a history of Alzheimer's/dementia but was responding appropriately to questions. They did note a laceration to the left posterior occiput. On questioning patient states that he is having no pain. He believes he fell yesterday. He denies any neurologic symptoms. He is speaking without slurring. Cranial nerves II through XII are intact. No significant focal neurologic episodes on exam. There is a 3 cm L-shaped laceration to the posterior occiput left side with mild surrounding swelling. Review of systems: As per history of present illness and below otherwise all systems reviewed and negative. Past medical history: As per history of present illness and as reviewed below otherwise noncontributory. Surgical history: As per history of present illness and as reviewed below otherwise noncontributory. Social history: No reported history of drug or alcohol abuse. Family history: As per history of present illness and as reviewed below otherwise noncontributory. Physical exam: HEENT: 3 cm laceration to the left occiput, normocephalic, pupils reactive, negative for conjunctival pallor or scleral icterus, mucous membranes moist, throat clear, neck supple, nontender, trachea midline. Lungs: Clear to auscultation, breath sounds equal bilaterally, chest nontender. Heart: S1S2, regular, negative for clicks, rubs, or JVD. Abdomen: Soft, nondistended, nontender. Negative for masses or hepatosplenomegaly. Negative for costovertebral tenderness. Pelvis: Stable nontender. Genitourinary: Deferred. Rectal: Deferred. Extremities: Atraumatic, negative for cords or calf pain. Neurovascular unremarkable. Neuro: Awake, alert,. Cranial nerves II through XII unremarkable. Cerebellum unremarkable. Motor and sensory unremarkable throughout. Exam nonfocal. Diagnostics: CT head/neck Therapeutics: 1% lidocaine with epi Staple closure Impression: Unwitnessed fall Scalp laceration 3 cm x 0.1 cm L-shaped Plan: Laceration on left posterior scalp was cleaned thoroughly and wound was examined. Using 1% lidocaine with epi area was adequately anesthetized. Using 3 surgical jade 3 cm x 0.1 cm laceration was closed with no complications. Patient tolerated procedure well. CTA head and neck were unremarkable for any acute findings. Patient was discharged back to [facility] with instructions to use bacitracin on laceration and have jade removed in 7-10 days. Should follow- up with primary care provider and return to emergency department if any new or worsening symptoms. Definitive disposition and diagnosis as appropriate pending reevaluation and review of above. - Related Data Allergies Allergy/AdvReac Type Severity Reaction Status Date / Time No Known Allergies Allergy Verified 06/14/17 03:26 Home Meds: Home Meds Tamsulosin HCl 0.4 mg PO DAILY 07/14/15 [History] Insulin Glarg,Human.Rec.Analog [Lantus Solostar] 26 units SUBCUT BEDTIME [History] Multivitamin [Daily Carlene] 1 tab PO DAILY 06/14/17 [History] Simvastatin [Zocor] 20 mg PO BEDTIME 06/14/17 [History] Past Medical History Cardiovascular History: Reports: High Cholesterol, Hypertension. Denies: Afib, Blood Clots/VTE/DVT Respiratory History: Reports: None. Denies: COPD, PE Other Gastrointestinal History: R inguinal hernia Genitourinary History: Reports: BPH, Chronic Renal Insuffiency Other Neuro History: Dementia Psychiatric History: Reports: Dementia Endocrine/Metabolic History: Reports: Diabetes, Type II - Infectious Disease History Infectious Disease History: Reports: Chicken Pox, Mumps Social & Family History - Caffeine Use Caffeine Use: Reports: None - Living Situation & Occupation Living situation: Reports: Alone Occupation: Retired ED ROS GENERAL - Review of Systems Review Of Systems: ROS reveals no pertinent complaints other than HPI. ED EXAM, GENERAL - Physical Exam Exam: See Below Course - Vital Signs Last Recorded V/S: Last Vital Signs Temp 97.5 F 02/17/18 04:18 Pulse 78 02/17/18 04:18 Resp 16 02/17/18 04:18 BP 169/65 H 02/17/18 04:18 Pulse Ox 97 02/17/18 04:18 - Orders/Labs/Meds Orders: Active Orders 24 hr Category Date Time Status Vaccines to be Administered [RC] PER UNIT ROUTINE Care 02/17/18 04:12 Active Cervical Spine wo Cont [CT] Stat Exams 02/17/18 04:09 Taken Head wo Cont [CT] Stat Exams 02/17/18 04:09 Taken Meds: Medications Discontinued Medications Generic Name Dose Route Start Last Admin Trade Name Ajith PRN Reason Stop Dose Admin Bacitracin 1 dose 02/17/18 04:45 02/17/18 04:49 Bacitracin Oint 1 Gm TOP 02/17/18 04:46 1 dose ONETIME ONE Administration Lidocaine/Epinephrine 20 ml 02/17/18 04:11 02/17/18 04:33 Xylocaine 1% With Epinephrine 1:100,000 INJECT 02/17/18 04:12 20 ml ONETIME ONE Administration Tetanus/Diphtheria Toxoids 0.5 ml 02/17/18 04:12 02/17/18 04:33 Tenivac IM 02/17/18 04:13 0.5 ml .ONCE ONE Administration Departure - Departure Time of Disposition: 05:13 Disposition: DC/Tfer to [facility] Condition: Good Clinical Impression: Unwitnessed fall Laceration of occipital scalp Qualifiers: Encounter type: initial encounter Qualified Code(s): S01.01XA - Laceration without foreign body of scalp, initial encounter Contusion of scalp Qualifiers: Encounter type: initial encounter Qualified Code(s): S00.03XA - Contusion of scalp, initial encounter - Discharge Information Referrals: PCP,None [Primary Care Provider] - Additional Instructions: My general discharge The following information is given to patients seen in the emergency department who are being discharged to home. This information is to outline your options for follow-up care. We provide all patients seen in our emergency department with a follow-up referral. The need for follow-up, as well as the timing and circumstances, are variable depending upon the specifics of your emergency department visit. If you don't have a primary care physician on staff, we will provide you with a referral. We always advise you to contact your personal physician following an emergency department visit to inform them of the circumstance of the visit and for follow-up with them and/or the need for any referrals to a consulting specialist. The emergency department will also refer you to a specialist when appropriate. This referral assures that you have the opportunity for follow-up care with a specialist. All of these measure are taken in an effort to provide you with optimal care, which includes your follow-up. Under all circumstances we always encourage you to contact your private physician who remains a resource for coordinating your care. When calling for follow-up care, please make the office aware that this follow-up is from your recent emergency room visit. If for any reason you are refused follow-up, please contact the [facility] Emergency Department at and asked to speak to the emergency department charge nurse. [address] [address] Follow-up with primary care provider. Use bacitracin on laceration, may use ibuprofen and Tylenol for pain and inflammation. Watch for signs of infection including but not limited to increased pain, swelling, redness, purulent discharge. Have jade removed in 7-10 days. May have emergency department remove jade or primary care provider. Return to emergency department if any new or worsening symptoms. - My Orders Last 24 Hours: My Active Orders 02/17/18 04:09 Cervical Spine wo Cont [CT] Stat Head wo Cont [CT] Stat 02/17/18 04:12 Vaccines to be Administered [RC] PER UNIT ROUTINE - Assessment/Plan Last 24 Hours: My Active Orders 02/17/18 04:09 Cervical Spine wo Cont [CT] Stat Head wo Cont [CT] Stat 02/17/18 04:12 Vaccines to be Administered [RC] PER UNIT ROUTINE
[2018-02-17] MEDS ORDERED: Lidocaine 1% with EPINEPHrine 1:100,000 20 ML MDV INJECT ONE (04:11)
[2018-02-17] MEDS ORDERED: Diphtheria/Tetanus Toxoids,Adult (Td) 0.5 ML Syringe IM ONE (04:12)
[2018-02-17 04:19] VITALS: BP 169/65
[2018-02-17] MEDS ORDERED: Bacitracin Oint 1 GM U/D Packet TOP ONE (04:45)
--- NOTE | 2018-02-17 15:29 | CT ---
EXAM DATE: 02/17/18 PATIENT'S AGE: 87 Patient: BRIANNA BENDER Facility: [place], [place] Site . Site : 1930 Study: CT Spine Cervical [id number]/27/2018 4:37:19 AM Ordering Physician: Donald Sharma Final Report: INDICATION: Fall, pain TECHNIQUE: CT cervical spine without contrast. COMPARISON: None FINDINGS: Vertebral alignment: Osteopenia alignment is normal. Vertebrae: There are no acute fractures or suspicious bony lesions. Remote T1 spinous process tip fracture Discs and facet joints: Moderate multilevel degenerative disc and facet changes. Extraspinal findings: Paraspinous soft tissues are unremarkable. IMPRESSION: 1. No sign of acute injury. 2. Multilevel degenerative spondylosis. Please note that all CT scans at this facility use dose modulation, iterative reconstruction, and/or weight-based dosing when appropriate to reduce radiation dose to as low as reasonably achievable. Dictated by Lor Donis MD @ Feb 17 2018 5:01AM (Electronic Signature) Report Signed by Proxy. MTDD
--- NOTE | 2018-02-17 15:30 | CT ---
EXAM DATE: 02/17/18 PATIENT'S AGE: 87 Patient: BRIANNA BENDER Facility: [place], [place] Site . Site : 1930 Study: CT Head [id number]/27/2018 4:37:42 AM Ordering Physician: Donald Sharma Final Report: INDICATION: Fall, pain, scalp contusion TECHNIQUE: Head CT without contrast. COMPARISON: None FINDINGS: CSF spaces: Within normal limits for age. Brain parenchyma: There are nonspecific low attenuation white matter changes consistent with chronic microvascular disease. No sign of mass, hemorrhage, or midline shift. Skull base and calvarium: There is mucosal thickening of the bilateral maxillary sinuses the visualized orbits are grossly unremarkable. No skull fractures. There is intracranial atherosclerosis. There is a left posterolateral scalp contusion. IMPRESSION: 1. No acute intracranial hemorrhage or skull fracture. Left posterolateral scalp contusion. 2. Nonspecific white matter disease, typical of chronic microvascular disease. Please note that all CT scans at this facility use dose modulation, iterative reconstruction, and/or weight-based dosing when appropriate to reduce radiation dose to as low as reasonably achievable. Dictated by Lor Donis MD @ Feb 17 2018 5:05AM (Electronic Signature) Report Signed by Proxy. [facility]
== END 2018-02-17 05:26 ==
LOC: MW.ED 04:00
DX: S01.01XA Laceration without foreign body of scalp, initial encounter (principal); I12.9 Hypertensive chronic kidney disease with stage 1 through stage 4 chronic kidney disease, or unspecified chronic kidney disease; N18.9 Chronic kidney disease, unspecified; E11.22 Type 2 diabetes mellitus with diabetic chronic kidney disease; G30.9 Alzheimer's disease, unspecified; F02.80 Dementia in other diseases classified elsewhere, unspecified severity, without behavioral disturbance, psychotic disturbance, mood disturbance, and anxiety; Z23 Encounter for immunization; Z79.4 Long term (current) use of insulin; Z79.899 Other long term (current) drug therapy; W19.XXXA Unspecified fall, initial encounter
CPT/HCPCS: 12002; 70450; 70450-26; 72125; 72125-26; 90471; 90714; 99283; 99283-25

== ENCOUNTER 2021-11-30 13:40 | Inpatient (IN) | payer MEDICARE, BC, MEDICAID ==
[2021-11-30] MEDS ORDERED: Sodium Chloride 0.9% 2.5 ML Syringe FLUSH PRN (14:08)
[2021-11-30] MEDS ORDERED: Sodium Chloride 0.9% 10 ML Syringe FLUSH PRN (14:08)
[2021-11-30] MEDS ORDERED: Piperacillin/Tazobactam 4.5 GM in Sodium Chloride 0.9% 100 ML IV ONE (14:10)
[2021-11-30] MEDS ORDERED: VANCOmycin 1.25 GM/250 ML 250 ML IV ONE (14:30)
[2021-11-30 14:38] LABS: BLOOD UREA NITROGEN,BUN 80 mg/dL (7.0-18.0); CARBON DIOXIDE,CO2 22.6 mmol/L (21.0-32.0); CHLORIDE,CL 119 mmol/L (98-107); GLUCOSE RANDOM 395 mg/dL (74-106); POTASSIUM,K 4.6 mmol/L (3.5-5.1); SODIUM,NA 153 mmol/L (136-148)
[2021-11-30 14:40] LABS: ESTIMATED GFR 33.5 ml/min
[2021-11-30] MEDS ORDERED: Sodium Chloride 0.9% 1,000 ML IV ONE ×2 (14:56)
[2021-11-30] MEDS ORDERED: Lactated Ringers 1,000 ML IV ONE (17:46)
[2021-11-30] MEDS ORDERED: Acetaminophen 325 MG Tab PO PRN (17:46)
[2021-11-30] MEDS ORDERED: Ondansetron 4 MG/2 ML SDV IVPUSH PRN (17:46)
[2021-11-30] MEDS ORDERED: Albuterol/Ipratropium 3.0-0.5 MG/3 ML Neb Soln NEB PRN (17:46)
[2021-11-30] MEDS ORDERED: Glucagon,Human Recombinant 1 MG Vial IM PRN (17:51)
[2021-11-30] MEDS ORDERED: 50% Dextrose in Water 50 ML Syringe IVPUSH PRN (17:51)
[2021-11-30] MEDS ORDERED: Enoxaparin 30 MG/0.3 ML Syringe SUBCUT SCH (18:00)
[2021-11-30 21:39] LABS: CARBON DIOXIDE,CO2 22.4 mmol/L (21.0-32.0)
[2021-11-30 21:50] LABS: ESTIMATED GFR 40.9 ml/min
[2021-11-30] MEDS: Piperacillin/Tazobactam 2.25 GM in Sodium Chloride 0.9% 50 ML IV SCH (23:42)
[2021-12-01] MEDS: Dextrose 5% in Water 1,000 ML IV SCH ×2 (00:51→12:43)
[2021-12-01] MEDS: Piperacillin/Tazobactam 2.25 GM in Sodium Chloride 0.9% 50 ML IV SCH ×2 (05:23→12:33)
[2021-12-01 05:29] LABS: CARBON DIOXIDE,CO2 23.7 mmol/L (21.0-32.0); POTASSIUM,K 4.2 mmol/L (3.5-5.1)
[2021-12-01 05:30] LABS: ESTIMATED GFR 40.9 ml/min
[2021-12-01] MEDS ORDERED: Insulin Aspart 100 Units/ML 3 ML Pen SUBCUT STA (07:52)
[2021-12-01] MEDS ORDERED: Insulin Glargine,Human Rec. Analog 100 Units/ML 3 ML Pen SUBCUT ONE (08:12)
[2021-12-01] MEDS: Insulin Aspart 100 Units/ML 3 ML Pen SUBCUT SCH ×2 (08:45→11:45)
[2021-12-01] MEDS ORDERED: Pantoprazole 40 MG Tab.CR PO SCH (09:00)
[2021-12-01] MEDS ORDERED: Pantoprazole 40 MG in Sodium Chloride 0.9% 10 ML IVPUSH SCH (09:00)
[2021-12-01 09:29] LABS: CARBON DIOXIDE,CO2 23.7 mmol/L (21.0-32.0); POTASSIUM,K 3.9 mmol/L (3.5-5.1)
[2021-12-01 09:34] LABS: ESTIMATED GFR 40.9 ml/min
[2021-12-01] MEDS ORDERED: Dextrose 5% in Water 500 ML IV ONE (11:04)
[2021-12-01] MEDS ORDERED: Levofloxacin/Dextrose 5%-Water 750 MG in Premix Bag 1 BAG IV SCH (12:15)
[2021-12-01] MEDS ORDERED: LORazepam 2 MG/ML SDV IVPUSH PRN (15:24)
[2021-12-01] MEDS: Morphine 2 MG/ML SYRINGE IVPUSH PRN (20:08)
[2021-12-02] MEDS: Morphine 2 MG/ML SYRINGE IVPUSH PRN (01:25)
[2021-12-02] MEDS ORDERED: LORazepam 1 MG Tab PO PRN (02:48)
[2021-12-02] MEDS ORDERED: Morphine 100 MG/5 ML (15 ML) Oral Solution PO PRN (02:49)
[2021-12-02] MEDS: Morphine 10 MG/0.5 ML Oral Syringe PO PRN ×3 (11:15→16:27)
[2021-12-03] MEDS: Morphine 10 MG/0.5 ML Oral Syringe PO PRN ×2 (09:55→14:33)
[2021-12-04 07:56] VITALS: BP 154/70; PULSE 64
[2021-12-04] MEDS: Morphine 10 MG/0.5 ML Oral Syringe PO PRN ×2 (08:04→11:35)
== END 2021-12-04 14:15 | DRG 683 ==
LOC: MW.ED 13:40 → MW.MS 16:15
PROVIDERS: ADMIT Student in an Organized Health Care Education/Training Program; ATTEND Student in an Organized Health Care Education/Training Program
DX: N17.9 Acute kidney failure, unspecified (principal); E87.1 Hypo-osmolality and hyponatremia; E87.0 Hyperosmolality and hypernatremia; Z51.5 Encounter for palliative care; I12.9 Hypertensive chronic kidney disease with stage 1 through stage 4 chronic kidney disease, or unspecified chronic kidney disease; E11.22 Type 2 diabetes mellitus with diabetic chronic kidney disease; N18.9 Chronic kidney disease, unspecified; E86.0 Dehydration; Z20.822 Contact with and (suspected) exposure to COVID-19; R41.82 Altered mental status, unspecified; Z79.4 Long term (current) use of insulin; I10 Essential (primary) hypertension; E11.9 Type 2 diabetes mellitus without complications; G30.9 Alzheimer's disease, unspecified; F02.80 Dementia in other diseases classified elsewhere, unspecified severity, without behavioral disturbance, psychotic disturbance, mood disturbance, and anxiety; E78.00 Pure hypercholesterolemia, unspecified; N40.0 Benign prostatic hyperplasia without lower urinary tract symptoms; D72.829 Elevated white blood cell count, unspecified; Z79.82 Long term (current) use of aspirin; Z79.899 Other long term (current) drug therapy
CPT/HCPCS: 36415; 70450; 71045; 80053; 81001; 82947; 83605; 83880; 84484; 85025; 85610; 87040 ×2; 93005; 96365; 96375; 99285; J2543; J3370; J7030 ×2; U0002; 80048; 83735; 84100; 93010; C9113; J1650; J1815-GY; J1956; J2270; J3490; J7060; J7120